=== PATIENT | female | born 2000 | race Caucasian/White ===

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

== ENCOUNTER 2019-07-31 03:55 | Emergency (ER) | payer SELFPAY ==
[2019-07-31 04:05] VITALS: BP 137/66
[2019-07-31] MEDS ORDERED: Ketorolac 60 MG/2 ML SDV IM ONE (04:17)
[2019-07-31] MEDS ORDERED: Promethazine 25 MG/ML SDV IM ONE (04:17)
[2019-07-31 06:09] VITALS: PULSE 61
--- NOTE | 2019-07-31 07:07 | EDM.PDOC ---
ED HPI GENERAL MEDICAL PROBLEM - General Chief Complaint: Headache Stated Complaint: MIGRAINE;VOMITING Time Seen by Provider: 07/31/19 04:10 Source of Information: Reports: Patient History Limitations: Reports: No Limitations - History of Present Illness INITIAL COMMENTS - FREE TEXT/NARRATIVE: pt is here with c/o HAs X 2 hrs, describe bilateral pressure pain with nausea, denies any other associated sx including neck pain or stiffness, fever chills ,, etc. pt report Hx of Migraines and recurrent HAs , states this is very similar to usual HAs. headache Pain Score (Numeric/FACES): 6 - Related Data Allergies Allergy/AdvReac Type Severity Reaction Status Date / Time No Known Allergies Allergy Verified 07/31/19 04:15 Home Meds: Home Meds Propranolol HCl [Propranolol] 80 mg PO DAILY 07/31/19 [History] Sertraline HCl [Zoloft] 200 mg PO BID 07/31/19 [History] Past Medical History - Past Health History Medical/Surgical History: Denies Medical/Surgical History HEENT History: Reports: Other (See Below) Other HEENT History: strep throat Cardiovascular History: Reports: Other (See Below) Other Cardiovascular History: states that she takes propranolol for her migraine. Psychiatric History: Reports: Depression Other Psychiatric History: on zoloft - Past Surgical History HEENT Surgical History: Reports: None Social & Family History - Family History Family Medical History: Noncontributory - Tobacco Use Smoking Status *Q: Never Smoker Second Hand Smoke Exposure: No - Caffeine Use Caffeine Use: Reports: Coffee, Soda - Recreational Drug Use Recreational Drug Use: No ED ROS GENERAL - Review of Systems Review Of Systems: See Below Constitutional: Reports: No Symptoms HEENT: Reports: No Symptoms Respiratory: Reports: No Symptoms Cardiovascular: Reports: No Symptoms GI/Abdominal: Reports: No Symptoms : Reports: No Symptoms Musculoskeletal: Reports: No Symptoms Skin: Reports: No Symptoms Neurological: Reports: Headache. Denies: Confusion, Dizziness, Numbness, Pre- Existing Deficit, Syncope, Trouble Speaking, Difficulty Walking, Change in Speech, Gait Disturbance Psychiatric: Reports: No Symptoms ED EXAM, GENERAL - Physical Exam Exam: See Below Exam Limited By: No Limitations General Appearance: Alert, No Apparent Distress (pt appear comfortable here. ) Ears: Normal External Exam, Normal TMs Nose: Normal Inspection Throat/Mouth: Normal Inspection, Normal Oropharynx Head: Atraumatic, Normocephalic Neck: Normal Inspection, Supple, Non-Tender Respiratory/Chest: No Respiratory Distress, Lungs Clear Cardiovascular: Normal Peripheral Pulses, Regular Rate, Rhythm GI/Abdominal: Normal Bowel Sounds, Soft, Non-Tender Back Exam: Normal Inspection Extremities: Normal Inspection, No Pedal Edema Neurological: Alert, Oriented, CN II-XII Intact, Normal Reflexes, No Motor/ Sensory Deficits Psychiatric: Normal Affect Skin Exam: Warm Course - Vital Signs Text/Narrative:: 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 Last Recorded V/S: Last Vital Signs Temp 36.6 C 07/31/19 04:00 Pulse 61 07/31/19 04:45 Resp 16 07/31/19 04:00 BP 137/66 07/31/19 04:00 Pulse Ox 97 07/31/19 04:00 - Orders/Labs/Meds Meds: Medications Discontinued Medications Generic Name Dose Route Start Last Admin Trade Name Carlita PRN Reason Stop Dose Admin Ketorolac Tromethamine 60 mg 07/31/19 04:17 07/31/19 04:21 Toradol IM 07/31/19 04:18 60 mg ONETIME ONE Administration Promethazine HCl 25 mg 07/31/19 04:17 07/31/19 04:22 Phenergan IM 07/31/19 04:18 25 mg ONETIME ONE Administration Departure - Departure Time of Disposition: 04:55 Disposition: Home, Self-Care 01 Clinical Impression: Tension-type headache - Discharge Information Instructions: Migraine Headache Referrals: Rosi Lynn PA [Primary Care Provider] - Forms: ED Department Discharge Additional Instructions: Take Tylenol 1000mg and ibuprofen 600 mg for pain if not contraindicated. Drink plenty of fluids and enough sleep. Follow up with your primary care provider as needed.
== END 2019-07-31 04:48 | disposition home or self-care (01) ==
LOC: FB.ED 03:55
DX: G44.209 Tension-type headache, unspecified, not intractable (principal); F32.9 Major depressive disorder, single episode, unspecified; Z79.899 Other long term (current) drug therapy
CPT/HCPCS: 96372; 99284-25; J1885; J2550

== ENCOUNTER 2020-12-09 21:14 | Emergency (ER) | payer MEDICAID ==
[2020-12-09 21:32] VITALS: BP 134/64; PULSE 85
--- NOTE | 2020-12-09 21:53 | EDM.PDOC ---
ED HPI GENERAL MEDICAL PROBLEM - General Chief Complaint: Respiratory Problem Stated Complaint: Sore throat Time Seen by Provider: 12/09/20 21:35 Source of Information: Reports: Patient History Limitations: Reports: No Limitations - History of Present Illness INITIAL COMMENTS - FREE TEXT/NARRATIVE: Patient presented to the ED because of cough/coul, sore throat. There is no feve r,chills, malaise or and N/V/D. - Related Data Allergies Allergy/AdvReac Type Severity Reaction Status Date / Time No Known Allergies Allergy Verified 07/31/19 04:15 Home Meds: Home Meds Propranolol HCl [Propranolol] 80 mg PO DAILY 07/31/19 [History] Sertraline HCl [Zoloft] 200 mg PO BID 07/31/19 [History] Past Medical History - Past Health History Medical/Surgical History: Denies Medical/Surgical History HEENT History: Reports: Other (See Below) Other HEENT History: strep throat, allergies Cardiovascular History: Reports: Other (See Below) Other Cardiovascular History: states that she takes propranolol for her migraine. 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: Psychiatric History: Reports: Depression Other Psychiatric History: on zoloft - Past Surgical History HEENT Surgical History: Reports: None Social & Family History - Family History Family Medical History: No Pertinent Family History - Tobacco Use Tobacco Use Status *Q: Never Tobacco User - Caffeine Use Caffeine Use: Reports: None - Recreational Drug Use Recreational Drug Use: No ED ROS GENERAL - Review of Systems Review Of Systems: See Below Constitutional: Reports: No Symptoms HEENT: Reports: No Symptoms, Throat Pain Respiratory: Reports: Cough Cardiovascular: Reports: No Symptoms Endocrine: Reports: No Symptoms GI/Abdominal: Reports: No Symptoms : Reports: No Symptoms Musculoskeletal: Reports: No Symptoms Skin: Reports: No Symptoms Neurological: Reports: Paresthesia Psychiatric: Reports: No Symptoms ED EXAM, GENERAL - Physical Exam Exam: See Below Exam Limited By: No Limitations General Appearance: Alert, No Apparent Distress Eye Exam: Bilateral Eye: PERRL Ears: Normal External Exam, Normal Canal Nose: Normal Inspection, Normal Mucosa, No Blood Throat/Mouth: Normal Inspection, Normal Lips, Normal Teeth, Other (pharyngeal injection.) Head: Atraumatic, Normocephalic Neck: Normal Inspection, Supple, Non-Tender Respiratory/Chest: No Respiratory Distress, Lungs Clear, Normal Breath Sounds, No Accessory Muscle Use, Chest Non-Tender Cardiovascular: Normal Peripheral Pulses, Regular Rate, Rhythm, No Edema, No Gallop, No JVD, No Murmur, No Rub GI/Abdominal: Normal Bowel Sounds, Soft, Non-Tender, No Organomegaly, No Distention, No Abnormal Bruit Back Exam: Normal Inspection, Full Range of Motion Extremities: Normal Inspection, Normal Range of Motion, Non-Tender, No Pedal Edema, Normal Capillary Refill Neurological: Alert, Oriented Course - Vital Signs Text/Narrative:: Rapid Strep-neg Last Recorded V/S: Last Vital Signs Temp 36.8 C 12/09/20 21:29 Pulse 85 12/09/20 21:29 Resp 16 12/09/20 21:29 BP 134/64 12/09/20 21:29 Pulse Ox 98 12/09/20 21:29 - Orders/Labs/Meds Labs: Laboratory Tests 12/09/20 Range/Units 21:43 Group A Strep (PCR) Not detected (NOT DETECT) Departure - Departure Time of Disposition: 21:55 Disposition: Home, Self-Care 01 Condition: Good Clinical Impression: URI (upper respiratory infection) - Discharge Information Instructions: Viral Respiratory Infection, [id number] Referrals: Rosi Lynn PA [Primary Care Provider] - Forms: ED Department Discharge Additional Instructions: Please read discharge instructions on viral URI Increase oral fluids We will call you as soon as we get the Rapid strep test. If it turns out positive I'll e-mail a prescription to your pharmacy. Follow up as needed Sepsis Event Note (ED) - Evaluation Sepsis Screening Result: No Definite Risk - Focused Exam Vital Signs: Vital Signs Temp Pulse Resp BP Pulse Ox 12/09/20 21:29 36.8 C 85 16 134/64 98
== END 2020-12-09 21:57 | disposition home or self-care (01) ==
LOC: FB.ED 21:14
DX: J06.9 Acute upper respiratory infection, unspecified (principal); Z79.899 Other long term (current) drug therapy
CPT/HCPCS: 87651-QW; 99283

== ENCOUNTER 2021-06-23 17:48 | Emergency (ER) | payer MEDICAID ==
[2021-06-23 18:06] VITALS: BP 140/81; PULSE 84
[2021-06-23] MEDS ORDERED: Ondansetron 4 MG Tab.DIS PO STA (18:17)
[2021-06-23] MEDS ORDERED: Ketorolac 30 MG/ML SDV IM STA (18:17)
[2021-06-23] MEDS ORDERED: Acetaminophen/HYDROcodone 325-5 MG Tab PO STA (18:17)
--- NOTE | 2021-06-23 19:04 | EDM.PDOC ---
ED HPI GENERAL MEDICAL PROBLEM - General Chief Complaint: Headache Stated Complaint: MIRGRAIN Time Seen by Provider: 06/23/21 17:55 Source of Information: Reports: Patient History Limitations: Reports: No Limitations - History of Present Illness INITIAL COMMENTS - FREE TEXT/NARRATIVE: Patient presented to the ED because of headache which started at 0900. The pain is throbbing all over her head,8/10, with associated nausea but no vomiting. She also c/o photophobia. She took OTC tylenol, ibuprofen, exedrin without any relief. 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 Headache Pain Score (Numeric/FACES): 10 - Related Data Allergies Allergy/AdvReac Type Severity Reaction Status Date / Time No Known Allergies Allergy Verified 07/31/19 04:15 Home Meds: Home Meds Propranolol HCl [Propranolol] 80 mg PO DAILY 07/31/19 [History] Sertraline HCl [Zoloft] 200 mg PO BID 07/31/19 [History] Ondansetron [Zofran ODT] 4 mg PO Q4H PRN #5 tab.dis 06/23/21 [Rx] Past Medical History - Past Health History Medical/Surgical History: Denies Medical/Surgical History HEENT History: Reports: Other (See Below) Other HEENT History: strep throat, allergies Cardiovascular History: Reports: Other (See Below) Other Cardiovascular History: states that she takes propranolol for her migraine. 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: Psychiatric History: Reports: Depression Other Psychiatric History: on zoloft - Past Surgical History HEENT Surgical History: Reports: None Social & Family History - Family History Family Medical History: No Pertinent Family History - Tobacco Use Tobacco Use Status *Q: Never Tobacco User - Caffeine Use Caffeine Use: Reports: None - Recreational Drug Use Recreational Drug Use: No ED ROS GENERAL - Review of Systems Review Of Systems: See Below Constitutional: Reports: No Symptoms HEENT: Reports: No Symptoms Respiratory: Reports: No Symptoms Cardiovascular: Reports: No Symptoms Endocrine: Reports: No Symptoms GI/Abdominal: Reports: No Symptoms : Reports: No Symptoms Musculoskeletal: Reports: No Symptoms Skin: Reports: No Symptoms Neurological: Reports: Headache Psychiatric: Reports: No Symptoms - Physical Exam Exam: See Below Exam Limited By: No Limitations General Appearance: Alert, No Apparent Distress Eye Exam: Bilateral Eye: PERRL Ears: Normal External Exam, Normal Canal Nose: Normal Inspection, Normal Mucosa, No Blood Throat/Mouth: Normal Inspection, Normal Lips, Normal Teeth, Normal Gums, Normal Oropharynx, Normal Voice Head Exam: Atraumatic, Normocephalic Neck: Normal Inspection, Supple, Non-Tender, Full Range of Motion Respiratory/Chest: No Respiratory Distress, Lungs Clear, Normal Breath Sounds, No Accessory Muscle Use, Chest Non-Tender Cardiovascular: Normal Peripheral Pulses, Regular Rate, Rhythm, No Edema, No Gallop, No JVD, No Murmur, No Rub GI/Abdominal: Normal Bowel Sounds, Soft, Non-Tender, No Organomegaly, No Distention, No Abnormal Bruit Neuro Exam (Abbreviated): Alert, Oriented, CN II-XII Intact, Normal Cognition, Normal Gait, No Motor/Sensory Deficits Course - Vital Signs Text/Narrative:: Toradol 60 mg IM x1 Zofran ODT 4 mg PO x1 [place] 5 mg, 2 PO x1 Her headache is down to a 2/10 prior upon discharge Last Recorded V/S: Last Vital Signs Temp 36.4 C 06/23/21 17:48 Pulse 84 06/23/21 17:48 Resp 20 06/23/21 17:48 BP 140/81 06/23/21 17:48 Pulse Ox 98 06/23/21 17:48 - Orders/Labs/Meds Meds: Medications Discontinued Medications Generic Name Dose Route Start Last Admin Trade Name Freq PRN Reason Stop Dose Admin Hydrocodone Bitart/Acetaminophen 2 tab 06/23/21 18:17 06/23/21 18:33 Acetaminophen/Hydrocodone 325-5 Mg Tab PO 06/23/21 18:18 2 tab NOW STA Administration Ketorolac Tromethamine 60 mg 06/23/21 18:17 06/23/21 18:32 Ketorolac 30 Mg/Ml Sdv IM 06/23/21 18:18 60 mg NOW STA Administration Ondansetron HCl 4 mg 06/23/21 18:17 06/23/21 18:33 Ondansetron 4 Mg Tab.Dis PO 06/23/21 18:18 4 mg NOW STA Administration Departure - Departure Time of Disposition: 19:00 Disposition: Home, Self-Care 01 Condition: Good Clinical Impression: Migraine headache - Discharge Information Prescriptions: Ondansetron [Zofran ODT] 4 mg PO Q4H PRN #5 tab.dis PRN Reason: Nausea Instructions: Migraine Headache, [id number] Referrals: Rosi Lynn PA [Primary Care Provider] - Forms: ED Department Discharge Additional Instructions: please read discharge instructions on migraine zofran odt 4 mg every 4 hours as needed for nausea ibuprofen 800 mg with tylenol 1000 mg every 8 hours follow up as needed Sepsis Event Note (ED) - Evaluation Sepsis Screening Result: No Definite Risk
== END 2021-06-23 19:08 | disposition home or self-care (01) ==
LOC: FB.ED 17:48
DX: G43.909 Migraine, unspecified, not intractable, without status migrainosus (principal)
CPT/HCPCS: 96372; 99283; A9270; J1885

== ENCOUNTER 2022-02-01 17:46 | Emergency (ER) | payer MEDICAID ==
[2022-02-01] MEDS ORDERED: diphenhydrAMINE 50 MG/ML SDV IM ONE (18:22)
[2022-02-01] MEDS ORDERED: Prochlorperazine 10 MG/2 ML SDV IM ONE (18:22)
[2022-02-01] MEDS ORDERED: Ketorolac 30 MG/ML SDV IM ONE (18:22)
[2022-02-01 21:02] VITALS: BP 136/88; PULSE 79
== END 2022-02-01 19:17 | disposition home or self-care (01) ==
LOC: FB.ED 17:46
DX: G43.011 Migraine without aura, intractable, with status migrainosus (principal); I10 Essential (primary) hypertension; E66.9 Obesity, unspecified; Z68.38 Body mass index [BMI] 38.0-38.9, adult
CPT/HCPCS: 96372; 99283; J0780; J1200; J1885; 99281

== ENCOUNTER 2022-04-29 17:17 | Emergency (ER) | payer MEDICAID ==
[2022-04-29] MEDS ORDERED: hydrOXYzine HCl 50 MG/ML SDV IM STA (18:16)
[2022-04-29] MEDS ORDERED: Ketorolac 30 MG/ML SDV IM STA (18:16)
[2022-04-29 20:44] VITALS: BP 123/75; PULSE 61
== END 2022-04-29 19:00 | disposition home or self-care (01) ==
LOC: FB.ED 17:17
DX: G43.909 Migraine, unspecified, not intractable, without status migrainosus (principal); I10 Essential (primary) hypertension; Z79.899 Other long term (current) drug therapy
CPT/HCPCS: 96372; 99283; J1885; J3410

== ENCOUNTER 2024-01-03 20:22 | Emergency (ER) | payer MEDICAID, OTHER ==
[2024-01-03 22:35] LABS: BILIRUBIN,URINE NEGATIVE (NEGATIVE); GLUCOSE,URINE NORMAL (NORMAL); KETONES,URINE NEGATIVE (NEGATIVE); LEUKOCYTE ESTERASE,URINE NEGATIVE (NEGATIVE); NITRITE,URINE NEGATIVE (NEGATIVE); OCCULT BLOOD,URINE NEGATIVE (NEGATIVE); PROTEIN,URINE NEGATIVE (NEGATIVE); UROBILINOGEN,URINE NORMAL (NEGATIVE)
[2024-01-03 22:55] VITALS: BP 132/75; PULSE 80
[2024-01-03 22:58] LABS: APPEARANCE,URINE CLEAR (CLEAR); BACTERIA,URINE FEW (NS); COLOR,URINE YELLOW (YELLOW); RBC,URINE 0-5 (0-5); SQUAMOUS EPITHELIAL CELLS,UR MODERATE (NS,R,O); WBC,URINE 0-5 (0-5)
[2024-01-03 22:59] LABS: MUCUS,URINE FEW (NS)
[2024-01-03] MEDS: Ketorolac 30 MG/ML SDV IM ONE (23:14)
[2024-01-03] MEDS: Cyclobenzaprine 10 MG Tab PO ONE (23:14)
== END 2024-01-03 23:18 | disposition home or self-care (01) ==
LOC: FB.ED 20:22
DX: M62.830 Muscle spasm of back (principal); I10 Essential (primary) hypertension; Z79.899 Other long term (current) drug therapy; Z86.16 Personal history of COVID-19
CPT/HCPCS: 81001; 81025; 96372; 99283; A9270-GY; J1885

== ENCOUNTER 2024-06-15 20:47 | Emergency (ER) | payer MEDICAID, OTHER ==
[2024-06-15] MEDS ORDERED: Sodium Chloride 0.9% 10 ML Syringe FLUSH PRN (21:12)
[2024-06-15 21:28] LABS: BASOPHILS ABSOLUTE AUTO 0.1 x10-3/uL (0.0-0.1); BASOPHILS PERCENT AUTO 0.6 % (0.2-1.5); EOSINOPHILS ABSOLUTE AUTO 0.1 x10-3/uL (0.0-0.8); EOSINOPHILS PERCENT AUTO 1.1 % (0.6-8.1); HEMATOCRIT 39.6 % (34.2-48.2); HEMOGLOBIN 13.2 g/dL (11.4-15.5); LYMPHOCYTES ABSOLUTE AUTO 1.2 x10-3/uL (1.0-4.4); LYMPHOCYTES PERCENT AUTO 10.5 % (18.4-52.1); MEAN CORPUSCULAR HEMOGLOBIN 28.8 pg (23.9-33.9); MEAN CORPUSCULAR HGB CONC 33.4 g/dL (31.9-34.8); MEAN CORPUSCULAR VOLUME 86.3 fL (76.7-100.5); MEAN PLATELET VOLUME 9.3 fL (7.1-12.4); MONOCYTES PERCENT AUTO 8.9 % (4.4-15.7); NEUTROPHILS ABSOLUTE AUTO 9.2 x10-3/uL (1.5-6.3); NEUTROPHILS PERCENT AUTO 78.9 % (30.8-76.2); PLATELET COUNT,PLT 349 x10(3)uL (151-488); RED BLOOD CELL COUNT 4.59 x10(6)uL (3.60-5.20); WHITE BLOOD CELL COUNT,WBC 11.7 x10-3/uL (3.0-10.3)
[2024-06-15 21:30] LABS: BLOOD UREA NITROGEN,BUN 9 mg/dL (7-18); CARBON DIOXIDE,CO2 23 mmol/L (21-32); CHLORIDE,CL 105 mmol/L (100-110); CREATININE 0.9 mg/dL (0.55-1.02); EST CRCL DRUG DOSING (CG) 92.92 mL/min; ESTIMATED GFR 91 mL/min (>60); GLUCOSE RANDOM 97 mg/dL (80-116); POTASSIUM,K 3.8 mmol/L (3.5-5.3); SODIUM,NA 142 mmol/L (135-145)
[2024-06-15 21:39] LABS: LACTIC ACID 1.1 mmol/L (0.4-2.0)
[2024-06-15 21:41] LABS: A/G RATIO 0.9; ALBUMIN 3.7 g/dL (3.5-5.2); ALKALINE PHOSPHATASE 173 IU/L (56-112); BILIRUBIN TOTAL 0.7 mg/dL (0.1-1.3); PROTEIN TOTAL,TP 7.7 g/dL (6.0-8.0)
[2024-06-15 21:46] LABS: ALANINE AMINOTRANSFERASE,ALT 175 U/L (12-36); ASPARTATE AMNIOTRANSFERASE,AST 242 IU/L (5-25)
[2024-06-15] MEDS: Sodium Chloride 0.9% 1,000 ML IV ONE (21:47)
[2024-06-15] MEDS: Ketorolac 15 MG/ML SDV IVPUSH ONE (21:50)
[2024-06-15] MEDS: Ondansetron 4 MG/2 ML SDV IVPUSH ONE (21:50)
[2024-06-15 23:27] VITALS: BP 156/78; PULSE 77
== END 2024-06-15 23:27 | disposition home or self-care (01) ==
LOC: FB.ED 20:47
DX: K80.10 Calculus of gallbladder with chronic cholecystitis without obstruction (principal); R74.8 Abnormal levels of other serum enzymes; I10 Essential (primary) hypertension; E66.9 Obesity, unspecified; Z68.43 Body mass index [BMI] 50.0-59.9, adult; Z86.16 Personal history of COVID-19; Z79.899 Other long term (current) drug therapy
CPT/HCPCS: 36415; 74176; 80053; 83605; 83690; 85025; 96361; 96374; 96375; 99284; J1885; J2405; J7030

== ENCOUNTER 2024-08-06 14:55 | Emergency (ER) | payer OTHER ==
[2024-08-06 15:53] VITALS: PULSE 70
[2024-08-06] MEDS: Ketorolac 30 MG/ML SDV IM ONE (15:56)
[2024-08-06 16:12] VITALS: BP 146/102
== END 2024-08-06 16:13 | disposition home or self-care (01) ==
LOC: FB.ED 14:55
DX: K59.03 Drug induced constipation (principal); T40.2X5A Adverse effect of other opioids, initial encounter; I10 Essential (primary) hypertension; E66.9 Obesity, unspecified; Z86.16 Personal history of COVID-19; Z68.43 Body mass index [BMI] 50.0-59.9, adult
CPT/HCPCS: 96372; 99283; J1885

== ENCOUNTER 2024-10-20 07:33 | Emergency (ER) | payer MEDICAID, OTHER ==
[2024-10-20 07:47] VITALS: BP 129/88; PULSE 73
[2024-10-20] MEDS: Ketorolac 30 MG/ML SDV IM ONE (07:56)
[2024-10-20] MEDS: hydrOXYzine HCl 50 MG/ML SDV IM ONE (07:57)
== END 2024-10-20 08:15 | disposition home or self-care (01) ==
LOC: FB.ED 07:33
DX: G43.909 Migraine, unspecified, not intractable, without status migrainosus (principal); I10 Essential (primary) hypertension; E66.9 Obesity, unspecified; Z86.16 Personal history of COVID-19
CPT/HCPCS: 96372; 99283; J1885; J3410